=== PATIENT | female | born 1990 | race Caucasian/White ===

== ENCOUNTER 2017-07-29 14:01 | Emergency (ER) | payer OTHER ==
[~2017-07-29] VITALS: Ht 162.6 cm; Wt 53.2 kg
[2017-07-29 14:30] VITALS: BP 115/63
[2017-07-29 15:07] LABS: BASOPHILS # (AUTO) 0.07 x10^3/uL (0-0.1); BASOPHILS % (AUTO) 1 % (0-1); EOSINOPHILS % (AUTO) 1 % (1-7); LYMPHOCYTES # (AUTO) 2.09 x10^3/uL (1-3.4); LYMPHOCYTES % (AUTO) 24 % (22-44); MD NO; MEAN CORPUSCULAR HEMOGLOBIN 31.9 pg (27.0-34.8); MEAN CORPUSCULAR VOLUME 91.1 fL (80-100); MEAN PLATELET VOLUME 8.2 fL (7.4-10.4); MONOCYTES # (AUTO) 0.69 x10^3/uL (0.2-0.8); MONOCYTES % (AUTO) 8 % (2-9); NEUTROPHILS # (AUTO) 5.85 x10^3/uL (1.8-6.8); NEUTROPHILS % (AUTO) 67 % (42-75); PLATELET COUNT 365 x10^3/uL (130-400); RED BLOOD COUNT 4.62 x10^6/uL (3.82-5.3); RED CELL DISTRIBUTION WIDTH 12.2 % (9.6-15.2)
[2017-07-29 15:18] LABS: ALBUMIN 3.8 g/dL (3.4-5.0); ANION GAP 11 mmol/L (5-15); CHLORIDE 104 mmol/L (98-107); CREATININE 0.59 mg/dL (0.55-1.02)
[2017-07-29] MEDS ORDERED: METOCLOPRAMIDE 10MG TABLET PO ONE (18:00)
== END 2017-07-29 18:34 | disposition home or self-care (01) ==
LOC: ED 18:27
DX: O26.891 Other specified pregnancy related conditions, first trimester (principal); O21.9 Vomiting of pregnancy, unspecified; F17.200 Nicotine dependence, unspecified, uncomplicated; Z3A.01 Less than 8 weeks gestation of pregnancy
CPT/HCPCS: 36415; 80048; 82040; 84703; 85025; 99284

== ENCOUNTER 2017-12-07 16:22 | Inpatient (IN) | payer MEDICAID ==
[~2017-12-07] VITALS: Ht 160 cm; Wt 52.2 kg
[2017-12-07] MEDS ORDERED: PLEASE ENTER HEIGHT AND WEIGHT MC SCH (17:00)
[2017-12-07] MEDS ORDERED: FAMOTIDINE 20 MG/2 ML IVPush ONE (17:00)
[2017-12-07 17:09] LABS: MICROSCOPIC INDICATED
[2017-12-07] MEDS ORDERED: ONDANSETRON ODT 4 MG ONE (17:10)
[2017-12-07 17:18] LABS: AMPHETAMINE SCREEN, URINE Negative (Negative); BARBITURATE SCREEN, URINE Negative (Negative); BENZODIAZEPINE SCREEN, URINE Positive (Negative); CANNABINOID SCREEN, URINE Positive (Negative); COCAINE SCREEN, URINE Positive (Negative); METHADONE SCREEN, URINE Negative (Negative); OPIATE SCREEN, URINE Negative (Negative)
[2017-12-07 17:30] LABS: BASOPHILS # (AUTO) 0.03 x10^3/uL (0-0.1); BASOPHILS % (AUTO) 0 % (0-1); EOSINOPHILS # (AUTO) 0.02 x10^3/uL (0-0.4); EOSINOPHILS % (AUTO) 0 % (1-7); LYMPHOCYTES % (AUTO) 11 % (22-44); MD NO; MEAN CORPUSCULAR HEMOGLOBIN 32.6 pg (27.0-34.8); MEAN CORPUSCULAR HGB CONC 34.7 g/dL (32.4-35.8); MEAN CORPUSCULAR VOLUME 93.9 fL (80-100); MEAN PLATELET VOLUME 8.9 fL (7.4-10.4); MONOCYTES # (AUTO) 0.78 x10^3/uL (0.2-0.8); MONOCYTES % (AUTO) 6 % (2-9); NEUTROPHILS # (AUTO) 11.21 x10^3/uL (1.8-6.8); NEUTROPHILS % (AUTO) 83 % (42-75); PLATELET COUNT 408 x10^3/uL (130-400); RED BLOOD COUNT 4.53 x10^6/uL (3.82-5.3); RED CELL DISTRIBUTION WIDTH 12.7 % (9.6-15.2)
[2017-12-07] MEDS ORDERED: ONDANSETRON ODT 4 MG PO ONE (17:30)
[2017-12-07] MEDS ORDERED: D5%-LACTATED RINGERS 1,000 ML IV SCH ×3 (17:30→19:00)
[2017-12-07 17:33] VITALS: BP 135/64
[2017-12-07 17:40] LABS: ALBUMIN 3.5 g/dL (3.4-5.0); ANION GAP 21 mmol/L (5-15); CALCIUM 9.5 mg/dL (8.5-10.1); CHLORIDE 105 mmol/L (98-107)
[2017-12-07 17:45] LABS: ALANINE AMINOTRANSFERASE 57 U/L (12-78); ALKALINE PHOSPHATASE 192 U/L (45-117); BILIRUBIN, DIRECT 0.5 mg/dL (0.1-0.2); BILIRUBIN,TOTAL 1.2 mg/dL (0.2-1.0); CREATININE 1.11 mg/dL (0.55-1.02); TOTAL PROTEIN 8.5 g/dL (6.4-8.2)
[2017-12-07 18:01] LABS: INTERNATIONAL NORMALIZED RATIO 1.02 (0.93-1.1); PROTHROMBIN TIME 10.5 Seconds (9.6-11.5)
[2017-12-07] MEDS ORDERED: MAALOX/HYOSCYAMINE/LIDOCAINE 45 ML BTL PO ONE (18:30)
[2017-12-07] MEDS: PANTOPRAZOLE 40 MG IV IVPush SCH (18:40)
[2017-12-07] MEDS ORDERED: RHOGAM FROM BLOOD BANK 1 NOTE EA IM/IV ONE (21:30)
[2017-12-07] MEDS ORDERED: LACTATED RINGERS 1,000 ML IVBOLUS ONE (22:30)
[2017-12-08] MEDS ORDERED: LACTATED RINGERS 1,000 ML IV SCH (00:30)
[2017-12-08 03:39] LABS: MICROSCOPIC INDICATED
[2017-12-08] MEDS ORDERED: ACETAMINOPHEN 325 MG TABLET PO PRN (04:00)
[2017-12-08] MEDS ORDERED: FUROSEMIDE 20 MG TABLET PO PRN (04:00)
[2017-12-08] MEDS ORDERED: ACETAMINOPHEN 325 MG TABLET ONE ×2 (04:04→05:10)
[2017-12-08 05:35] LABS: BASOPHILS # (AUTO) 0.05 x10^3/uL (0-0.1); BASOPHILS % (AUTO) 1 % (0-1); EOSINOPHILS # (AUTO) 0.04 x10^3/uL (0-0.4); EOSINOPHILS % (AUTO) 0 % (1-7); LYMPHOCYTES # (AUTO) 1.95 x10^3/uL (1-3.4); LYMPHOCYTES % (AUTO) 17 % (22-44); MD NO; MEAN CORPUSCULAR HEMOGLOBIN 32.4 pg (27.0-34.8); MEAN CORPUSCULAR HGB CONC 34.9 g/dL (32.4-35.8); MEAN CORPUSCULAR VOLUME 92.9 fL (80-100); MEAN PLATELET VOLUME 8.1 fL (7.4-10.4); MONOCYTES # (AUTO) 1.18 x10^3/uL (0.2-0.8); MONOCYTES % (AUTO) 10 % (2-9); NEUTROPHILS # (AUTO) 8.51 x10^3/uL (1.8-6.8); NEUTROPHILS % (AUTO) 73 % (42-75); PLATELET COUNT 271 x10^3/uL (130-400); RED BLOOD COUNT 3.15 x10^6/uL (3.82-5.3); RED CELL DISTRIBUTION WIDTH 12.7 % (9.6-15.2)
[2017-12-08 05:42] LABS: CHLORIDE 110 mmol/L (98-107)
[2017-12-08 05:51] LABS: ALANINE AMINOTRANSFERASE 39 U/L (12-78); ALBUMIN 2.3 g/dL (3.4-5.0); ALKALINE PHOSPHATASE 127 U/L (45-117); ANION GAP 13 mmol/L (5-15); CALCIUM 8.4 mg/dL (8.5-10.1); CREATININE 0.71 mg/dL (0.55-1.02); TOTAL PROTEIN 5.6 g/dL (6.4-8.2)
[2017-12-08] MEDS: PANTOPRAZOLE 40 MG IV IVPush SCH (06:04)
[2017-12-08 10:23] LABS: BASOPHILS # (AUTO) 0.12 x10^3/uL (0-0.1); BASOPHILS % (AUTO) 1 % (0-1); EOSINOPHILS # (AUTO) 0.06 x10^3/uL (0-0.4); EOSINOPHILS % (AUTO) 1 % (1-7); LYMPHOCYTES # (AUTO) 1.67 x10^3/uL (1-3.4); LYMPHOCYTES % (AUTO) 16 % (22-44); MD NO; MEAN CORPUSCULAR HEMOGLOBIN 33.2 pg (27.0-34.8); MEAN CORPUSCULAR HGB CONC 35.6 g/dL (32.4-35.8); MEAN CORPUSCULAR VOLUME 93.3 fL (80-100); MONOCYTES # (AUTO) 0.89 x10^3/uL (0.2-0.8); MONOCYTES % (AUTO) 9 % (2-9); NEUTROPHILS # (AUTO) 7.45 x10^3/uL (1.8-6.8); NEUTROPHILS % (AUTO) 73 % (42-75); PLATELET COUNT 263 x10^3/uL (130-400); RED BLOOD COUNT 3.04 x10^6/uL (3.82-5.3); RED CELL DISTRIBUTION WIDTH 12.5 % (9.6-15.2)
[2017-12-08 10:34] LABS: ALANINE AMINOTRANSFERASE 36 U/L (12-78); ALBUMIN 2.3 g/dL (3.4-5.0); ANION GAP 11 mmol/L (5-15); CALCIUM 8.3 mg/dL (8.5-10.1); CHLORIDE 110 mmol/L (98-107); CREATININE 0.67 mg/dL (0.55-1.02)
[2017-12-08 10:37] LABS: ALKALINE PHOSPHATASE 124 U/L (45-117); BILIRUBIN,TOTAL 0.6 mg/dL (0.2-1.0); TOTAL PROTEIN 5.4 g/dL (6.4-8.2)
[2017-12-08] MEDS ORDERED: BETAMETHASONE 6 MG/ML, 5ML IM SCH (13:00)
[2017-12-08] MEDS ORDERED: BETAMETHASONE 6 MG/ML, 5ML IM ONE (13:22)
[2017-12-08] MEDS ORDERED: MAGNESIUM SULFATE 1 GM in SODIUM CHLORIDE 0.9% 50 ML IV ONE (13:30)
[2017-12-08] MEDS ORDERED: MAGNESIUM SULFATE 1 GM in DEXTROSE 5% 100 ML IV ONE (13:58)
[2017-12-08] MEDS ORDERED: DOCUSATE 100 MG CAPSULE PO PRN (14:30)
[2017-12-08 18:38] LABS: CREATININE CLEARANCE,URINE 117.6 (70.0-140.0)
[2017-12-09] MEDS ORDERED: LACTATED RINGERS 1,000 ML IV SCH ×2 (00:30)
== END 2017-12-08 17:45 | disposition home or self-care (01) | DRG 781 ==
LOC: LDOP 16:22 → LDIP 17:30 → OBSVTOIN 17:55
PROVIDERS: ADMIT Obstetrics & Gynecology; ATTEND Obstetrics & Gynecology
DX: O26.833 Pregnancy related renal disease, third trimester (principal); N17.0 Acute kidney failure with tubular necrosis; O99.323 Drug use complicating pregnancy, third trimester; K92.0 Hematemesis; E87.2 Acidosis; O98.413 Viral hepatitis complicating pregnancy, third trimester; O99.113 Other diseases of the blood and blood-forming organs and certain disorders involving the immune mechanism complicating pregnancy, third trimester; O99.613 Diseases of the digestive system complicating pregnancy, third trimester; O99.283 Endocrine, nutritional and metabolic diseases complicating pregnancy, third trimester; F41.9 Anxiety disorder, unspecified; O99.343 Other mental disorders complicating pregnancy, third trimester; E86.0 Dehydration; K21.9 Gastro-esophageal reflux disease without esophagitis; E87.6 Hypokalemia; O99.013 Anemia complicating pregnancy, third trimester; D64.9 Anemia, unspecified; F12.10 Cannabis abuse, uncomplicated; E79.0 Hyperuricemia without signs of inflammatory arthritis and tophaceous disease; E83.42 Hypomagnesemia; R00.0 Tachycardia, unspecified; O99.513 Diseases of the respiratory system complicating pregnancy, third trimester; B19.20 Unspecified viral hepatitis C without hepatic coma; O9A.213 Injury, poisoning and certain other consequences of external causes complicating pregnancy, third trimester; D72.829 Elevated white blood cell count, unspecified; T40.7X5A Adverse effect of cannabis (derivatives), initial encounter; Y92.89 Other specified places as the place of occurrence of the external cause; Z87.11 Personal history of peptic ulcer disease; Z87.891 Personal history of nicotine dependence; Z3A.28 28 weeks gestation of pregnancy
CPT/HCPCS: 36415; 76700; 76805; 80053; 80307; 81001; 81050; 82150; 82248; 82575; 82962; 83690; 83735; 84156; 84550; 85025; 85384; 85610; 85730; 86592; 86708; 86762; 86803; 86850; 86900; 87086; 87340; 87521; 87806; 93005; J0702; J2790; J3475; Q0162; C9113; G0378; G0475; J7120; J7121

== ENCOUNTER 2017-12-09 15:08 | Outpatient (CLI) | payer BC, MEDICAID ==
[2017-12-09] MEDS ORDERED: BETAMETHASONE 6 MG/ML, 5ML IM SCH (15:30)
== END 2017-12-09 15:35 | disposition home or self-care (01) ==
LOC: LDOP 15:08
PROVIDERS: ATTEND Obstetrics & Gynecology
DX: O9A.213 Injury, poisoning and certain other consequences of external causes complicating pregnancy, third trimester (principal); Z3A.28 28 weeks gestation of pregnancy
CPT/HCPCS: 59025; 96372; 99211; J0702; G0463

== ENCOUNTER 2018-01-16 20:36 | Emergency (ER) | payer MEDICAID | END 2018-01-17 00:24 | LOC: ED 20:40 | DX: Z02.9 Encounter for administrative examinations, unspecified (principal) ==

== ENCOUNTER 2018-01-16 20:50 | Observation (INO) | payer MEDICAID ==
[~2018-01-16] VITALS: Ht 162.6 cm; Wt 59.6 kg
[2018-01-16 21:28] LABS: MICROSCOPIC INDICATED
[2018-01-16 21:35] LABS: AMPHETAMINE SCREEN, URINE Negative (Negative); BARBITURATE SCREEN, URINE Negative (Negative); BENZODIAZEPINE SCREEN, URINE Negative (Negative); COCAINE SCREEN, URINE Negative (Negative); METHADONE SCREEN, URINE Negative (Negative); OPIATE SCREEN, URINE Negative (Negative)
[2018-01-16 21:41] LABS: CANNABINOID SCREEN, URINE Positive (Negative)
[2018-01-16 23:11] LABS: BASOPHILS # (AUTO) 0.07 x10^3/uL (0-0.1); BASOPHILS % (AUTO) 1 % (0-1); EOSINOPHILS # (AUTO) 0.14 x10^3/uL (0-0.4); EOSINOPHILS % (AUTO) 2 % (1-7); LYMPHOCYTES # (AUTO) 2.21 x10^3/uL (1-3.4); LYMPHOCYTES % (AUTO) 25 % (22-44); MD NO; MEAN CORPUSCULAR HEMOGLOBIN 31.6 pg (27.0-34.8); MEAN CORPUSCULAR HGB CONC 34.5 g/dL (32.4-35.8); MEAN CORPUSCULAR VOLUME 91.7 fL (80-100); MONOCYTES # (AUTO) 0.89 x10^3/uL (0.2-0.8); MONOCYTES % (AUTO) 10 % (2-9); NEUTROPHILS # (AUTO) 5.49 x10^3/uL (1.8-6.8); NEUTROPHILS % (AUTO) 62 % (42-75); PLATELET COUNT 243 x10^3/uL (130-400); RED BLOOD COUNT 2.77 x10^6/uL (3.82-5.3)
[2018-01-16 23:33] LABS: ALBUMIN 2.2 g/dL (3.4-5.0); ANION GAP 6 mmol/L (5-15); CALCIUM 8.3 mg/dL (8.5-10.1); CHLORIDE 110 mmol/L (98-107)
[2018-01-16 23:37] LABS: ALANINE AMINOTRANSFERASE 14 U/L (12-78); ALKALINE PHOSPHATASE 177 U/L (45-117); BILIRUBIN, DIRECT 0.1 mg/dL (0.1-0.2); BILIRUBIN,TOTAL 0.5 mg/dL (0.2-1.0); CREATININE 0.56 mg/dL (0.55-1.02); TOTAL PROTEIN 5.8 g/dL (6.4-8.2)
== END 2018-01-17 01:38 | disposition home or self-care (01) ==
LOC: LDOP 20:50 → LDIP 23:00
PROVIDERS: ADMIT Obstetrics & Gynecology; ATTEND Obstetrics & Gynecology
DX: O26.893 Other specified pregnancy related conditions, third trimester (principal); M79.89 Other specified soft tissue disorders; Z79.899 Other long term (current) drug therapy; Z3A.35 35 weeks gestation of pregnancy
CPT/HCPCS: 36415; 59025; 80053; 80307; 81001; 82248; 82570; 84156; 84550; 85025; 87086; 87522; 93971; G0378

== ENCOUNTER 2018-09-21 12:18 | Inpatient (IN) | payer SELFPAY ==
[~2018-09-21] VITALS: Ht 160 cm; Wt 42.8 kg
[~2018-09-21 12:18] MED LIST: HYDR-3240 PO; IBUP-1222 PO; LABE100T6 PO; PREN1TAB84 PO
[2018-09-21] MEDS ORDERED: SODIUM CHLORIDE FLUSH 10ML SYR IVF ONE (12:30)
[2018-09-21 12:45] LABS: BASOPHILS # (AUTO) 0.07 x10^3/uL (0-0.1); BASOPHILS % (AUTO) 1 % (0-1); EOSINOPHILS # (AUTO) 0.03 x10^3/uL (0-0.4); EOSINOPHILS % (AUTO) 1 % (1-7); LYMPHOCYTES # (AUTO) 1.57 x10^3/uL (1-3.4); LYMPHOCYTES % (AUTO) 29 % (22-44); MD NO; MEAN CORPUSCULAR HEMOGLOBIN 30.7 pg (27.0-34.8); MEAN CORPUSCULAR VOLUME 87.8 fL (80-100); MEAN PLATELET VOLUME 7.8 fL (7.4-10.4); MONOCYTES # (AUTO) 0.51 x10^3/uL (0.2-0.8); MONOCYTES % (AUTO) 9 % (2-9); NEUTROPHILS # (AUTO) 3.22 x10^3/uL (1.8-6.8); NEUTROPHILS % (AUTO) 60 % (42-75); PLATELET COUNT 376 x10^3/uL (130-400); RED CELL DISTRIBUTION WIDTH 12.7 % (9.6-15.2)
--- NOTE | 2018-09-21 12:45 | NUR ---
PT PRESENTS TO ED, STATING SHE WAS SEEN AT [facility] ED 2 DAYS AGO AND DIAGNOSED WITH LEFT ECTOPIC . PT STATES SHE LEFT AMA BECAUSE SHE WAS SCARED. PT IS AWAKE, ALERT AND ORIENTED, RESPS EVEN AND UNLABORED. PT IS ANXIOUS BUT COOPERATIVE, STATING SHE CAME TO THIS ED FOR SURGERY PER PREVIOUS RECOMMENDATION. PT REPORTS SCANT VAGINAL BLEEDING, CRAMPING AND LEFT LOWER PELVIC PAIN PRESENT FOR PAST WEEK. PT STATES PAST PO INTAKE WAS A MCDOUBLE AT 11AM. PT INSTRUCTED TO REMAIN NPO. PT ATTACHED TO ALL MONITORS, IN GOWN, BLANKET PROVIDED. S/O AT BEDSIDE.
[2018-09-21 12:47] VITALS: BP 141/73
[2018-09-21 12:56] LABS: ALBUMIN 4.1 g/dL (3.4-5.0); ANION GAP 6 mmol/L (5-15); CALCIUM 9.2 mg/dL (8.5-10.1); CHLORIDE 108 mmol/L (98-107); CREATININE 0.71 mg/dL (0.55-1.02)
--- NOTE | 2018-09-21 13:02 | NUR ---
NATASHA PAULSON AT BEDSIDE.
--- NOTE | 2018-09-21 13:18 | NUR ---
THROUGHPUT RN: SPOKE W/ RIYA FROM [facility] WHO IS DECLINING PT TRANSFER. SPOKE W/ AKHIL FROM [facility] WHO IS DECLINING PT TRANSFER.
[2018-09-21] MEDS ORDERED: MORPHINE SULFATE 4 MG/ML, 1ML ONE (13:26)
[2018-09-21] MEDS ORDERED: ONDANSETRON 2MG/ML, 2ML ONE ×2 (13:26→17:43)
[2018-09-21] MEDS: MORPHINE SULFATE 4 MG/ML, 1ML IVPush PRN ×2 (13:30→16:42)
[2018-09-21] MEDS ORDERED: ONDANSETRON 2MG/ML, 2ML IVPush ONE (13:30)
--- NOTE | 2018-09-21 13:31 | NUR ---
PT MEDICATED PER EMAR, TOLERATED WELL. PT REMAINS A&O, RESPS EVEN AND UNLABORED. PT REPORTS PAIN LEVEL 7/10 AT THIS TIME. PT TO BE ADMITTED, AWAITING ROOM ASSIGNMENT AND TRANSPORT. PT UPDATED WITH POC.
--- NOTE | 2018-09-21 13:44 | NUR ---
report called to receiving TALIA Morales pt awaiting transport to room 444.
[2018-09-21 13:54] VITALS: BP 132/77
[2018-09-21] MEDS ORDERED: MORPHINE SULFATE 4 MG/ML, 1ML IVPush PRN ×2 (16:00→17:30)
[2018-09-21] MEDS ORDERED: FENTANYL PF 100 MCG/2ML ONE ×4 (17:15→19:42)
[2018-09-21] MEDS ORDERED: MIDAZOLAM 1 MG/ML, 2ML ONE (17:15)
[2018-09-21] MEDS ORDERED: METOCLOPRAMIDE 5 MG/ML, 2ML IV PRN (17:30)
[2018-09-21] MEDS ORDERED: OXYcodone 5 MG/5 ML ORAL.SOL UDC PO PRN (17:30)
[2018-09-21] MEDS ORDERED: ACETAMINOPHEN 325 MG TABLET PO PRN (17:30)
[2018-09-21] MEDS ORDERED: LORazepam 2 MG/ML, 1ML IVPush PRN (17:30)
[2018-09-21] MEDS ORDERED: MEPERIDINE/PF 25MG/0.5ML IVPush PRN (17:30)
[2018-09-21] MEDS ORDERED: HYDROmorphone 2 MG/ML, 1ML IVPush PRN (17:30)
[2018-09-21] MEDS ORDERED: SILVER NITRATE STICK TP ONE (17:36)
[2018-09-21] MEDS ORDERED: BUPIVACAINE/PF 0.25% ONE (17:36)
[2018-09-21] MEDS ORDERED: EPINEPHRINE 1 MG/ML, 1ML ONE (17:36)
[2018-09-21] MEDS ORDERED: GLYCOPYRROLATE 0.2MG/1ML, 5ML ONE (17:43)
[2018-09-21] MEDS ORDERED: PROPOFOL 10 MG/ML, 20ML ONE (17:43)
[2018-09-21] MEDS ORDERED: NEOSTIGMINE 1 MG/ML, 10ML ONE (17:43)
[2018-09-21] MEDS ORDERED: ROCURONIUM 10 MG/ML,10ML ONE (17:43)
[2018-09-21] MEDS ORDERED: CEFAZOLIN 1,000 MG ONE (17:43)
[2018-09-21] MEDS ORDERED: MEDROXYPROGESTERONE ACETATE 150 MG/ML IM ONE (18:30)
[2018-09-21] MEDS ORDERED: MEPERIDINE/PF 25MG/ML,1ML ONE (19:06)
[2018-09-21] MEDS ORDERED: OXYcodone 5 MG/5 ML ORAL.SOL UDC ONE (19:07)
[2018-09-21] MEDS ORDERED: METOCLOPRAMIDE 5 MG/ML, 2ML ONE (19:08)
[2018-09-21] MEDS ORDERED: PROMETHAZINE 25 MG/ML, 1ML ONE (19:10)
[2018-09-21] MEDS: FENTANYL PF 100 MCG/2ML IV PRN ×4 (19:25→20:09)
[2018-09-21] MEDS ORDERED: PROMETHAZINE 12.5 MG SUPP PR ONE (19:30)
[2018-09-21] MEDS ORDERED: PROMETHAZINE 25 MG/ML, 1ML IV PRN (19:30)
[2018-09-21] MEDS ORDERED: IBUPROFEN 200 MG TABLET PO SCH (23:00)
[2018-09-21] MEDS ORDERED: OXYcodone/APAP 5/325MG TABLET PO PRN (23:00)
[2018-09-21] MEDS ORDERED: OXYC-302 PO (23:15)
== END 2018-09-21 23:54 | disposition home or self-care (01) | DRG 818 ==
LOC: ED 13:02 → 4NOR 13:03 → ED 13:24 → 4NOR 13:51 → ED 13:57
PROVIDERS: ADMIT Obstetrics & Gynecology; ATTEND Obstetrics & Gynecology
PROC: 10T24ZZ Resection of Products of Conception, Ectopic, Percutaneous Endoscopic Approach (ICD-10-PCS; 2018-09-21)
PROC: 0DNW4ZZ Release Peritoneum, Percutaneous Endoscopic Approach (ICD-10-PCS; 2018-09-21)
PROC: 0U524ZZ Destruction of Bilateral Ovaries, Percutaneous Endoscopic Approach (ICD-10-PCS; 2018-09-21)
PROC: 0UB04ZX Excision of Right Ovary, Percutaneous Endoscopic Approach, Diagnostic (ICD-10-PCS; 2018-09-21)
PROC: 0UB54ZZ Excision of Right Fallopian Tube, Percutaneous Endoscopic Approach (ICD-10-PCS; principal; 2018-09-21 17:30)
DX: O00.101 Right tubal pregnancy without intrauterine pregnancy (principal); O16.1 Unspecified maternal hypertension, first trimester; O23.591 Infection of other part of genital tract in pregnancy, first trimester; F17.200 Nicotine dependence, unspecified, uncomplicated; N80.1 Endometriosis of ovary; F43.10 Post-traumatic stress disorder, unspecified; N73.6 Female pelvic peritoneal adhesions (postinfective); O99.331 Smoking (tobacco) complicating pregnancy, first trimester; O99.341 Other mental disorders complicating pregnancy, first trimester; Z3A.01 Less than 8 weeks gestation of pregnancy; Z80.49 Family history of malignant neoplasm of other genital organs; Z90.721 Acquired absence of ovaries, unilateral
CPT/HCPCS: 36415; J3490; 80048; 82040; 84702; 85025; 86850; 86870; 86900; 86922; 86923; 88305; G0378; J0171; J0690; J2175; J2250; J2405; J2550; J2704; J2710; J3010; J1050

== ENCOUNTER 2019-12-14 03:54 | Emergency (ER) | payer MEDICAID ==
[~2019-12-14] VITALS: Ht 157.5 cm; Wt 51.6 kg
[~2019-12-14 03:54] MED LIST changes: +OXYC-302 PO
--- NOTE | 2019-12-14 04:07 | NUR ---
Patient presents to ER c/o epigastric CP radiating into left ribs which started last night. Worse when lying flat. Denies SOB. Patient is in NAD. Respirations even and unlabored.
--- NOTE | 2019-12-14 04:12 | NUR ---
Patient states she had two episodes of vomiting last night. Denies nausea currently.
[2019-12-14 05:01] VITALS: BP 122/72
--- NOTE | 2019-12-14 05:02 | NUR ---
Discharge instructions given. All questions and concerns addressed. Patient ambulatory with a steady gait. Belongings with patient.
== END 2019-12-14 05:03 | disposition home or self-care (01) ==
LOC: ED 04:50
DX: R07.89 Other chest pain (principal); R11.10 Vomiting, unspecified; R05 Cough; R94.31 Abnormal electrocardiogram [ECG] [EKG]
CPT/HCPCS: 71045; 93005; 99283